=== PATIENT | male | born 1990 | race Hispanic/Latino ===

== ENCOUNTER 2018-12-05 16:19 | Emergency (ER) | payer SELFPAY ==
[2018-12-05] MEDS ORDERED: CHLORPROMAZINE HCL 25 MG/ML 1ML AMP ONE (17:16)
== END 2018-12-05 18:09 | disposition home or self-care (01) ==
LOC: EDH 16:19
DX: R06.6 Hiccough (principal); H66.002 Acute suppurative otitis media without spontaneous rupture of ear drum, left ear; F12.10 Cannabis abuse, uncomplicated; Z90.49 Acquired absence of other specified parts of digestive tract; Z88.5 Allergy status to narcotic agent
CPT/HCPCS: 96372; 99283; J3230